=== PATIENT | male | born 1950 | race Caucasian/White ===

== ENCOUNTER → 2023-01-22 | Outpatient (CLI) | payer MEDICARE, MEDICAID ==
[~2023-01-22] MED LIST: ASPI-1497 PO; CARV25TA47 PO; EMPA10TA PO; GLIP10TA10 PO; LISI20TA31 PO; METF-416 PO; NITR0.4T49 SL; ROSU40TA PO
== END | disposition home or self-care (01) ==
LOC: PF 09:56 → MERGE 09:56
PROVIDERS: ATTEND Thoracic Surgery (Cardiothoracic Vascular Surgery)
DX: I25.10 Atherosclerotic heart disease of native coronary artery without angina pectoris (principal); Z20.822 Contact with and (suspected) exposure to COVID-19; Z79.899 Other long term (current) drug therapy
CPT/HCPCS: 87426; 94010; C9803

== ENCOUNTER 2023-01-30 19:35 | Inpatient (IN) | payer MEDICARE, MEDICAID ==
[~2023-01-30] VITALS: Ht 160 cm; Wt 73.5 kg
[2023-01-30 20:00] VITALS: BP 96/65
[2023-01-30] MEDS ORDERED: OXYCODONE HCL/ACETAMINOPHEN 5/325MG TABLET PO PRN ×2 (21:45)
[2023-01-30] MEDS ORDERED: ACETAMINOPHEN 325MG TABLET PO PRN (21:45)
[2023-01-30] MEDS ORDERED: ONDANSETRON HCL 4MG/2ML INJ IV PRN (21:45)
[2023-01-30] MEDS ORDERED: MORPHINE SULFATE 2 MG/ML CPJ (NOT FOR IM USE) IV PRN (21:45)
[2023-01-30] MEDS ORDERED: NITROGLYCERIN 0.4MG TABLET SL SL PRN (21:45)
[2023-01-30] MEDS ORDERED: NALOXONE HCL 0.4 MG/ML 1ML VIAL IV PRN (21:45)
[2023-01-30] MEDS ORDERED: DEXTROSE 50% WATER 50ML SYRINGE IV PRN (22:45)
[2023-01-30] MEDS: AMIODARONE HCL 200 MG TABLET PO SCH (23:30)
[2023-01-30] MEDS: MIDODRINE HCL 5MG TABLET PO SCH (23:32)
[2023-01-31] MEDS: IPRATROPIUM/ALBUTEROL 0.5-3(2.5)MG/3ML NEB HHN SCH ×5 (00:23→20:22)
[2023-01-31] MEDS: BLOOD SUGAR DIAGNOSTIC STRIP TEST SCH ×4 (07:01→20:15)
[2023-01-31 08:00] VITALS: BP 120/63
[2023-01-31] MEDS: INSULIN LISPRO 100 UNITS/ML SUBCUT SCH ×4 (08:18→21:00)
[2023-01-31] MEDS: FAMOTIDINE 20MG TABLET PO SCH (10:01)
[2023-01-31] MEDS: AMIODARONE HCL 200 MG TABLET PO SCH ×2 (10:01→21:44)
[2023-01-31] MEDS: METFORMIN HCL 500MG TABLET PO SCH ×2 (10:01→18:01)
[2023-01-31] MEDS: DOCUSATE SODIUM 100MG CAPSULE PO SCH ×2 (10:01→18:01)
[2023-01-31] MEDS: MIDODRINE HCL 5MG TABLET PO SCH ×4 (10:02→21:46)
[2023-01-31] MEDS: INSULIN GLARGINE 100 UNITS/ML SUBCUT SCH (10:15)
[2023-01-31] MEDS ORDERED: ACETAMINOPHEN 325MG TABLET PO PRN (10:45)
[2023-01-31 13:16] VITALS: BP 132/78
[2023-01-31] MEDS: GLIPIZIDE 10MG TABLET PO SCH (13:20)
[2023-01-31 16:52] VITALS: BP 133/73
[2023-01-31 20:00] VITALS: BP 129/69
[2023-02-01] MEDS: IPRATROPIUM/ALBUTEROL 0.5-3(2.5)MG/3ML NEB HHN SCH ×7 (04:00→21:18)
[2023-02-01] MEDS: BLOOD SUGAR DIAGNOSTIC STRIP TEST SCH ×4 (06:30→20:17)
[2023-02-01] MEDS: GLIPIZIDE 10MG TABLET PO SCH (07:00)
[2023-02-01 07:57] VITALS: BP 117/72
[2023-02-01] MEDS: INSULIN LISPRO 100 UNITS/ML SUBCUT SCH ×4 (09:00→20:18)
[2023-02-01] MEDS: DOCUSATE SODIUM 100MG CAPSULE PO SCH ×2 (09:39→17:17)
[2023-02-01] MEDS: METFORMIN HCL 500MG TABLET PO SCH ×2 (09:40→17:18)
[2023-02-01] MEDS: AMIODARONE HCL 200 MG TABLET PO SCH ×2 (09:40→20:17)
[2023-02-01] MEDS: FAMOTIDINE 20MG TABLET PO SCH (09:40)
[2023-02-01] MEDS: MIDODRINE HCL 5MG TABLET PO SCH ×4 (09:40→20:17)
[2023-02-01] MEDS: INSULIN GLARGINE 100 UNITS/ML SUBCUT SCH (09:58)
[2023-02-01] MEDS: TAMSULOSIN HCL 0.4MG SR CAPSULE PO SCH (12:35)
[2023-02-01 19:49] VITALS: BP 110/60
[2023-02-02] MEDS: IPRATROPIUM/ALBUTEROL 0.5-3(2.5)MG/3ML NEB HHN SCH ×6 (00:34→19:51)
[2023-02-02] MEDS: GLIPIZIDE 10MG TABLET PO SCH (06:04)
[2023-02-02] MEDS: BLOOD SUGAR DIAGNOSTIC STRIP TEST SCH ×4 (06:05→20:51)
[2023-02-02] MEDS: DOCUSATE SODIUM 100MG CAPSULE PO SCH ×2 (08:46→17:18)
[2023-02-02] MEDS: METFORMIN HCL 500MG TABLET PO SCH ×2 (08:47→17:19)
[2023-02-02] MEDS: TAMSULOSIN HCL 0.4MG SR CAPSULE PO SCH (08:48)
[2023-02-02] MEDS: MIDODRINE HCL 5MG TABLET PO SCH ×4 (08:49→20:57)
[2023-02-02] MEDS: AMIODARONE HCL 200 MG TABLET PO SCH ×2 (08:49→20:57)
[2023-02-02] MEDS: FAMOTIDINE 20MG TABLET PO SCH (08:49)
[2023-02-02] MEDS: INSULIN LISPRO 100 UNITS/ML SUBCUT SCH ×4 (08:50→20:51)
[2023-02-02] MEDS: INSULIN GLARGINE 100 UNITS/ML SUBCUT SCH (10:08)
[2023-02-02 19:37] VITALS: BP 124/64
[2023-02-03] MEDS: IPRATROPIUM/ALBUTEROL 0.5-3(2.5)MG/3ML NEB HHN SCH ×4 (04:50→20:40)
[2023-02-03] MEDS: BLOOD SUGAR DIAGNOSTIC STRIP TEST SCH ×4 (06:19→21:13)
[2023-02-03] MEDS: INSULIN LISPRO 100 UNITS/ML SUBCUT SCH ×4 (06:25→21:00)
[2023-02-03] MEDS: GLIPIZIDE 10MG TABLET PO SCH (07:00)
[2023-02-03 07:49] VITALS: BP 120/74
[2023-02-03] MEDS: AMIODARONE HCL 200 MG TABLET PO SCH ×2 (09:07→21:09)
[2023-02-03] MEDS: MIDODRINE HCL 5MG TABLET PO SCH ×3 (09:07→21:00)
[2023-02-03] MEDS: DOCUSATE SODIUM 100MG CAPSULE PO SCH ×2 (09:07→17:31)
[2023-02-03] MEDS: FAMOTIDINE 20MG TABLET PO SCH (09:08)
[2023-02-03] MEDS: METFORMIN HCL 500MG TABLET PO SCH ×2 (09:08→17:31)
[2023-02-03] MEDS: TAMSULOSIN HCL 0.4MG SR CAPSULE PO SCH (09:08)
[2023-02-03] MEDS: INSULIN GLARGINE 100 UNITS/ML SUBCUT SCH (09:08)
[2023-02-03 20:00] VITALS: BP 132/69
[2023-02-03] MEDS ORDERED: ZOLPIDEM TARTRATE 5MG TABLET PO PRN (21:30)
[2023-02-04] MEDS: IPRATROPIUM/ALBUTEROL 0.5-3(2.5)MG/3ML NEB HHN SCH ×6 (04:00→20:00)
[2023-02-04] MEDS: INSULIN LISPRO 100 UNITS/ML SUBCUT SCH ×4 (06:46→21:12)
[2023-02-04] MEDS: BLOOD SUGAR DIAGNOSTIC STRIP TEST SCH ×4 (06:46→21:04)
[2023-02-04] MEDS: GLIPIZIDE 10MG TABLET PO SCH (07:29)
[2023-02-04 08:00] VITALS: BP 112/68
[2023-02-04] MEDS: AMIODARONE HCL 200 MG TABLET PO SCH ×2 (08:28→21:04)
[2023-02-04] MEDS: TAMSULOSIN HCL 0.4MG SR CAPSULE PO SCH (08:28)
[2023-02-04] MEDS: DOCUSATE SODIUM 100MG CAPSULE PO SCH ×2 (08:28→17:00)
[2023-02-04] MEDS: MIDODRINE HCL 5MG TABLET PO SCH ×4 (08:32→21:04)
[2023-02-04] MEDS: FAMOTIDINE 20MG TABLET PO SCH (08:39)
[2023-02-04] MEDS: METFORMIN HCL 500MG TABLET PO SCH ×2 (09:19→17:28)
[2023-02-04] MEDS: INSULIN GLARGINE 100 UNITS/ML SUBCUT SCH (10:00)
[2023-02-04 20:00] VITALS: BP 114/70
[2023-02-04] MEDS: TEMAZEPAM 15MG CAPSULE PO SCH (21:03)
[2023-02-05] MEDS: IPRATROPIUM/ALBUTEROL 0.5-3(2.5)MG/3ML NEB HHN SCH
[2023-02-05] MEDS: GLIPIZIDE 10MG TABLET PO SCH (05:35)
[2023-02-05] MEDS: BLOOD SUGAR DIAGNOSTIC STRIP TEST SCH ×3 (05:37→21:49)
[2023-02-05] MEDS: INSULIN LISPRO 100 UNITS/ML SUBCUT SCH ×4 (09:00→21:00)
[2023-02-05] MEDS: FAMOTIDINE 20MG TABLET PO SCH (11:55)
[2023-02-05] MEDS: TAMSULOSIN HCL 0.4MG SR CAPSULE PO SCH (11:55)
[2023-02-05] MEDS: METFORMIN HCL 500MG TABLET PO SCH ×2 (11:56→19:10)
[2023-02-05] MEDS: DOCUSATE SODIUM 100MG CAPSULE PO SCH ×2 (11:57→19:10)
[2023-02-05] MEDS: MIDODRINE HCL 5MG TABLET PO SCH ×4 (11:57→21:48)
[2023-02-05] MEDS: INSULIN GLARGINE 100 UNITS/ML SUBCUT SCH (12:22)
[2023-02-05] MEDS: AMIODARONE HCL 200 MG TABLET PO SCH ×2 (12:33→21:48)
[2023-02-05] MEDS: TEMAZEPAM 15MG CAPSULE PO SCH (21:48)
[2023-02-06] MEDS: GLIPIZIDE 10MG TABLET PO SCH (06:53)
[2023-02-06] MEDS: BLOOD SUGAR DIAGNOSTIC STRIP TEST SCH ×4 (06:53→21:40)
[2023-02-06] MEDS: INSULIN LISPRO 100 UNITS/ML SUBCUT SCH ×5 (09:00→21:00)
[2023-02-06] MEDS: AMIODARONE HCL 200 MG TABLET PO SCH ×2 (09:29→21:03)
[2023-02-06] MEDS: MIDODRINE HCL 5MG TABLET PO SCH ×4 (09:29→21:03)
[2023-02-06] MEDS: DOCUSATE SODIUM 100MG CAPSULE PO SCH ×2 (09:29→18:30)
[2023-02-06] MEDS: TAMSULOSIN HCL 0.4MG SR CAPSULE PO SCH (09:29)
[2023-02-06] MEDS: METFORMIN HCL 500MG TABLET PO SCH ×2 (09:29→18:30)
[2023-02-06] MEDS: FAMOTIDINE 20MG TABLET PO SCH (09:30)
[2023-02-06] MEDS: INSULIN GLARGINE 100 UNITS/ML SUBCUT SCH (09:33)
[2023-02-06 20:00] VITALS: BP 114/61
[2023-02-06] MEDS: TEMAZEPAM 15MG CAPSULE PO SCH (21:02)
[2023-02-07] MEDS: BLOOD SUGAR DIAGNOSTIC STRIP TEST SCH ×4 (06:07→21:00)
[2023-02-07] MEDS: GLIPIZIDE 10MG TABLET PO SCH (06:07)
[2023-02-07] MEDS: INSULIN LISPRO 100 UNITS/ML SUBCUT SCH ×4 (06:07→21:00)
[2023-02-07 08:00] VITALS: BP 115/68
[2023-02-07] MEDS: DOCUSATE SODIUM 100MG CAPSULE PO SCH ×2 (09:04→17:21)
[2023-02-07] MEDS: AMIODARONE HCL 200 MG TABLET PO SCH ×2 (09:05→22:10)
[2023-02-07] MEDS: METFORMIN HCL 500MG TABLET PO SCH ×2 (09:05→17:21)
[2023-02-07] MEDS: MIDODRINE HCL 5MG TABLET PO SCH ×4 (09:05→22:10)
[2023-02-07] MEDS: FAMOTIDINE 20MG TABLET PO SCH (09:06)
[2023-02-07] MEDS: TAMSULOSIN HCL 0.4MG SR CAPSULE PO SCH (09:06)
[2023-02-07] MEDS: INSULIN GLARGINE 100 UNITS/ML SUBCUT SCH (10:00)
[2023-02-07 20:00] VITALS: BP 115/62
[2023-02-07] MEDS: TEMAZEPAM 15MG CAPSULE PO SCH (22:09)
[2023-02-08] MEDS: INSULIN LISPRO 100 UNITS/ML SUBCUT SCH ×4 (06:21→21:00)
[2023-02-08] MEDS: BLOOD SUGAR DIAGNOSTIC STRIP TEST SCH ×4 (06:21→21:58)
[2023-02-08] MEDS: GLIPIZIDE 10MG TABLET PO SCH (06:53)
[2023-02-08 07:55] VITALS: BP 120/69
[2023-02-08] MEDS: METFORMIN HCL 500MG TABLET PO SCH ×2 (08:05→16:36)
[2023-02-08] MEDS: DOCUSATE SODIUM 100MG CAPSULE PO SCH ×2 (08:06→16:32)
[2023-02-08] MEDS: TAMSULOSIN HCL 0.4MG SR CAPSULE PO SCH (08:06)
[2023-02-08] MEDS: FAMOTIDINE 20MG TABLET PO SCH (08:06)
[2023-02-08] MEDS: AMIODARONE HCL 200 MG TABLET PO SCH ×2 (08:06→21:57)
[2023-02-08] MEDS: MIDODRINE HCL 5MG TABLET PO SCH ×4 (08:07→21:58)
[2023-02-08] MEDS: INSULIN GLARGINE 100 UNITS/ML SUBCUT SCH (09:06)
[2023-02-08 19:58] VITALS: BP 131/76
[2023-02-08] MEDS: TEMAZEPAM 15MG CAPSULE PO SCH (21:58)
[2023-02-09] MEDS: INSULIN LISPRO 100 UNITS/ML SUBCUT SCH ×2 (06:04→12:29)
[2023-02-09] MEDS: BLOOD SUGAR DIAGNOSTIC STRIP TEST SCH ×2 (06:04→11:15)
[2023-02-09] MEDS: GLIPIZIDE 10MG TABLET PO SCH (06:28)
[2023-02-09 08:00] VITALS: BP 106/69
[2023-02-09] MEDS: TAMSULOSIN HCL 0.4MG SR CAPSULE PO SCH (08:42)
[2023-02-09] MEDS: METFORMIN HCL 500MG TABLET PO SCH (08:42)
[2023-02-09] MEDS: MIDODRINE HCL 5MG TABLET PO SCH ×2 (08:42→12:57)
[2023-02-09] MEDS: AMIODARONE HCL 200 MG TABLET PO SCH (08:42)
[2023-02-09] MEDS: DOCUSATE SODIUM 100MG CAPSULE PO SCH (08:42)
[2023-02-09] MEDS: FAMOTIDINE 20MG TABLET PO SCH (08:42)
[2023-02-09] MEDS: INSULIN GLARGINE 100 UNITS/ML SUBCUT SCH (09:18)
[2023-02-09 13:28] VITALS: BP 135/72
== END 2023-02-09 14:35 | disposition home health service (06) | DRG 303 ==
LOC: UNDODISIN 21:05
PROVIDERS: ADMIT Psychiatry & Neurology Neurology; ATTEND Internal Medicine
DX: I25.110 Atherosclerotic heart disease of native coronary artery with unstable angina pectoris (principal); I50.32 Chronic diastolic (congestive) heart failure; E78.00 Pure hypercholesterolemia, unspecified; I11.0 Hypertensive heart disease with heart failure; R33.8 Other retention of urine; E11.40 Type 2 diabetes mellitus with diabetic neuropathy, unspecified; N40.1 Benign prostatic hyperplasia with lower urinary tract symptoms; F39 Unspecified mood [affective] disorder; Z86.011 Personal history of benign neoplasm of the brain; I25.2 Old myocardial infarction; Z95.1 Presence of aortocoronary bypass graft; Z82.49 Family history of ischemic heart disease and other diseases of the circulatory system; Z83.3 Family history of diabetes mellitus
CPT/HCPCS: 36415; 82565; 82962; 84153; 92523; 93970; 94640; 97110; 97116; 97162; 97166; 97530; 97535; J1815; A5200; G0103